=== PATIENT | male | born 1955 | race Caucasian/White ===

== ENCOUNTER 2023-11-22 12:52 | Inpatient (IN) ==
[2023-11-22 13:41] LABS: Hematocrit (blood only) 28.6 % (42.0-52.0); Hemoglobin 9.1 g/dl (14.0-18.0); Mean Corpuscular Hemoglobin 26.9 pg (25.0-34.0); Mean Corpuscular Hgb Conc 31.8 g/dL (32.0-36.0); Mean Corpuscular Volume 84.6 fL (80.0-100.0); Mean Platelet Volume 9.5 fL (9.4-12.4); Platelet Count 258 K/uL (130-400); RDW Standard Deviation 48.9 fL (36.4-46.3); Red Blood Count 3.38 M/uL (4.70-6.10); White Blood Count 31.39 K/ul (4.8-10.8)
--- NOTE | 2023-11-22 13:49 | Emergency Department Note ---
Impression & Plan Hypotension, Generalized weakness, Hypoxia, BAMBI (acute kidney injury) ED Provider Note ED Provider Note NAME: NAV ZAPATA AGE:68 SEX: Male : 1955 ARRIVES VIA: EMS INFORMANT: Patient, family ED PROVIDER(s): Milagros Chowdhury DO CHIEF COMPLAINT: Weakness, dizziness HPI: This is a 68-year-old male presents emergency department due to concern for increasing weakness, dizziness, decreased oral intake. Patient recently diagnosed with lung cancer. They state he is slowly been losing his appetite and has had decreased oral intake and has had subsequently increased weakness and dizziness particular with position change. They state he has been more tired and sleeping. He denies abdominal pain, vomiting or diarrhea. He does admit to occasional shortness of breath but states he does not wear home oxygen or use only nebs/MDIs at home. Family bedside also states he recently had a bladder infusion of chemotherapy for bladder cancer. Patient reports subjective fevers and chills however family states they have checked his temperature at home during these episodes and he has not had a measurable fever. They state he did get so weak this morning he dropped to his knees, no head injury, family states small abrasion to the left forearm. They state patient is scheduled to start chemotherapy next week for the lung cancer. Patient given 500 mL of normal saline by EMS prior to arrival. PAST MEDICAL HISTORY:See Below PAST SURGICAL HISTORY:See Below FAMILY HISTORY:See Below SOCIAL HISTORY:See Below HOME MEDICATIONS:See Below ALLERGIES:See Below VITALS:See Below PHYSICAL EXAMINATION: GENERAL: alert, ill appearing, well nourished, no distress, non-toxic EYE EXAM: normal conjunctiva, PERRL and EOM's grossly intact OROPHARYNX: no exudate, no erythema, lips, buccal mucosa, and tongue normal and mucous membranes are severely dry NECK: supple, no nuchal rigidity, no adenopathy, non-tender LUNGS: Clear to auscultation. Normal chest wall mechanics, no w/r, bibasilar rales, mild tachypnea HEART: no murmurs, S1 normal and S2 normal ABDOMEN: abdomen soft, non-tender, normo-active bowel sounds, no masses, no rebound or guarding. SKIN: no rashes, petechiae, orbruising UPPER EXTREMITIES: upper extremities are grossly normal. FROM, nml pulses b/l. LOWER EXTREMITIES: 1+ b/l L>R pitting edema. FROM, nml pulses b/l. NEURO EXAM: Normal sensorium, cranial nerves II-XII grossly intact, normal speech, no facial droop,nogross weakness of arms, no gross weakness of legs. Gross sensation intact. No ataxia. Vital Signs: reviewed and remarkable Differential Diagnosis: dehydration, stroke, anemia, hypoglycemia, hyponatremia, hypernatremia, urinary tract infection, pneumonia, bronchitis, sepsis, gastroenteritis, additional abdominal pathology, metabolic abnormalities, as well as others were considered MEDICAL DECISION MAKING: THis is a 68 yo male brought in by EMS due to family concern for worsening weakness, decreased oral intake, and hypotension noted by EMS and persistent on arrival here. He was also noted to be hypoxic on arrival. He was given 500 ml IVF by EMS. Labs drawn and sent, IV established, EKG and CXR performed and interpreted at bedside, and patient placed on telemetry. He was immediately started on additional IVF with slow improvement of his BP. He oxygen improved with NC supplementation. Leukocytosis noted and blood culture, lactic acid, and procal added and empiric antibiotics added additionally. Patient noted to have BAMBI also. We discussed additional imaging such as with CT however I did not feel patient was stable enough yet for that trip out of the department. Patient and family updated on results and need for additional inpatient mgmt. Case discussed with the hospitalist team for additional evaluation and mgmt. Blood pressure improved at time of conversation with hospitalist after 2.5 L IVF which dose meet sepsis guidelines for IVF resuscitation using IBW. Consultation(s): 1500: Discussed with Dr. Huynh, ID hospitalist team for additional evaluation and mgmt. ER Treatment Provided: See below Diagnostics Interpreted By Me: -ECG: nsr at 95, nml axis, nml intervals, no acute ST/T wave changes -Cardiac Monitoring: An order was placed for continuous cardiac monitoring. The monitor shows a rate of 80 with normal sinus rhythm. -Laboratory studies: As stated above and show below. -Imaging studies: cxr: pulm edema new compared to prior, lung mass, no cm, no wide mediastinum Triage Nursing Note Reviewed Prior/Outside Records Reviewed Critical Care: Critical care of 47 min performed to assess and manage high likelihood of life- threatening hypotension and bambi, involving labs and imaging performed with assessment to evaluate hypotension and weakness diagnosis with frequent reassessment. This time includes bedside time, treatment discussions with patient/family/consultants, documentation time and excludes procedure time. Past Med/Surg History Problem List (Updated 11/22/23 @ 23:46 by Rodriguez Huynh MD) Normocytic anemia Elevated INR Acute respiratory failure with hypoxia SIRS (systemic inflammatory response syndrome) BAMBI (acute kidney injury) (Acute) Hypoxia (Acute) Generalized weakness (Acute) Hypotension (Acute) Squamous cell lung cancer Lung nodule Combined pulmonary fibrosis and emphysema (CPFE) Hypersomnia Pulmonary fibrosis ILD (interstitial lung disease) Abnormal chest CT CIS (carcinoma in situ of bladder) Bladder mass Abnormal finding on CT scan Hematuria Proteinuria Vitamin D deficiency Chronic kidney disease, stage 3a follows w/ Dr. Ma Erectile dysfunction Chronic kidney disease, stage 3 Anemia Edema Hyperlipidemia (Acute) Medical History Obesity Prediabetes Hx of bladder cancer dx 2022, sx only Chronic kidney disease, stage 3a follows w/ Dr. Ma History of anemia Combined pulmonary fibrosis and emphysema (CPFE) f/u dr. pope, [place] pulm Lung nodule Hyperlipidemia Hypertension Surgical History History of lung biopsy History of transurethral resection of bladder tumor (TURBT) History of esophagogastroduodenoscopy (EGD) History of colonoscopy History of cornea transplant bilat Family History Father Myocardial infarction Family history of coronary artery disease Mother Non-Hodgkin's lymphoma Other No family history of adverse response to anesthesia Prostate cancer Denies family history of Ovarian cancer Breast cancer Colorectal cancer Social History Smoking Status: Former smoker Tobacco Type: Cigarettes Age Started Using Tobacco: 18; Age Quit Using Tobacco: 38; packs per day: 1; Second Hand Exposure: Yes (hx growing up); Do You Dip or Chew Tobacco: No (quit 20 years ago; advised); Hx Alcohol Use: Yes Alcohol type: beer, wine and hard liquor Hx Substance Use: No Preferred Language: Croatian Communication Ability: Effective Visual Impairment: No Limitations Hearing Ability: Normal Registered Radiographer Required: No Beliefs That Will Affect Care: None marital status: Current Living Situation: Spouse current occupational status: employed current occupation: Part-time employed-[employer] Other Information That Helps Us Care for You: No Feels Safe at Home: Yes Safety Concerns: Feels Safe At This Time Childhood Exposure to Second-Hand Smoke: Yes Dental Care, Regularly: No Physical Activity Frequency: Does not Exercise Seatbelt Use: always Sunscreen Use: No Assistive Devices: None Allergies Allergies Allergy/AdvReac Type Severity Reaction Status Date / Time No Known Drug Allergies Allergy Unknown Unknown Verified 11/22/23 15:24 Home Meds Home Medications Medication Instructions Recorded Confirmed aspirin 81 mg tablet,delayed 81 mg PO QAM 12/22/17 11/22/23 release (Alexander Low Dose Aspirin) multivitamin 1 tab PO QAM 12/22/17 11/22/23 omega 5-pxj-guj-fish oil 1,000 mg 1 cap PO QAM 12/22/17 11/22/23 (120 mg-180 mg) capsule (Fish Oil) empagliflozin 10 mg tablet 10 mg PO QAM 09/16/23 11/22/23 (Jardiance) ibuprofen 400 mg tablet 400 mg PO Q6H PRN Pain 09/24/23 11/22/23 oxybutynin chloride 5 mg tablet 5 mg PO Q8H PRN bladder spasms 10/14/23 11/22/23 dexamethasone 4 mg tablet See Rx Instructions .Route .COMPLEX 11/22/23 11/22/23 magnesium oxide 250 mg PO DAILY 11/22/23 11/22/23 olanzapine 2.5 mg tablet 2.5 mg PO UD 11/22/23 11/22/23 ondansetron 8 mg disintegrating 8 mg translingual Q8 PRN Nausea 11/22/23 11/22/23 tablet And Vomiting oxycodone 5 mg tablet 5 mg PO .EVERY 4-6 HOURS PRN Pain 11/22/23 11/22/23 potassium 99 mg tablet 99 mg PO DAILY 11/22/23 11/22/23 prochlorperazine maleate 10 mg 10 mg PO Q6 PRN Nausea 11/22/23 11/22/23 tablet Previous Rx's Medication Instructions Recorded rosuvastatin 10 mg tablet 10 mg PO QAM #90 tabs 06/26/23 Results & Data (ED) Vital Signs Vital Signs - 24 hr 11/22/23 12:46 11/22/23 13:03 11/22/23 13:19 Temperature 36.5 C Temperature Source Oral Pulse Rate 88 Pulse Rate [Apical] Pulse Rhythm Regular Pulse Strength Normal Respiratory Rate 24 22 Respiratory Effort / Characteristics Non-Labored Respiratory Depth Normal Respiratory Pattern Regular Blood Pressure 79/41 L Blood Pressure [Right Arm] Blood Pressure Mean 53 Blood Pressure Mean [Right Arm] Blood Pressure Position [Right Arm] Pulse Oximetry 88 L 88 L 97 Oxygen Delivery Method Room Air Nasal Cannula Room Air Nasal Cannula Oxygen Flow Rate 0 2 Sepsis Recent Fever Within 48 Hours No Sepsis New/Unexplained Change in Mental Status No Sepsis Action Taken by Nursing No Action Required Oxygen Flow Rate - Titration 2 Pulse Oximetry Post Tiitration 95 11/22/23 13:30 11/22/23 13:30 11/22/23 13:44 Temperature Temperature Source Pulse Rate 85 88 Pulse Rate [Apical] 84 Pulse Rhythm Pulse Strength Respiratory Rate 26 H 28 H Respiratory Effort / Characteristics Respiratory Depth Respiratory Pattern Blood Pressure 72/45 L Blood Pressure [Right Arm] 79/48 L Blood Pressure Mean 54 Blood Pressure Mean [Right Arm] 58 Blood Pressure Position [Right Arm] Lying Pulse Oximetry 97 99 Oxygen Delivery Method Nasal Cannula Nasal Cannula Oxygen Flow Rate 2 2 Sepsis Recent Fever Within 48 Hours Sepsis New/Unexplained Change in Mental Status Sepsis Action Taken by Nursing Oxygen Flow Rate - Titration Pulse Oximetry Post Tiitration 11/22/23 14:10 11/22/23 14:17 11/22/23 15:03 Temperature Temperature Source Pulse Rate Pulse Rate [Apical] 81 80 79 Pulse Rhythm Pulse Strength Respiratory Rate 26 H 24 26 H Respiratory Effort / Characteristics Respiratory Depth Respiratory Pattern Blood Pressure Blood Pressure [Right Arm] 93/51 L 100/58 L 100/55 L Blood Pressure Mean Blood Pressure Mean [Right Arm] 65 72 70 Blood Pressure Position [Right Arm] Pulse Oximetry 96 99 97 Oxygen Delivery Method Nasal Cannula Nasal Cannula Nasal Cannula Oxygen Flow Rate 2 2 2 Sepsis Recent Fever Within 48 Hours Sepsis New/Unexplained Change in Mental Status Sepsis Action Taken by Nursing Oxygen Flow Rate - Titration Pulse Oximetry Post Tiitration Laboratory Data 11/24/23 05:23 11/24/23 05:23 Lab Results 11/22/23 11/22/23 11/22/23 Range/Units 13:08 13:38 13:54 WBC 31.39 H* (4.8-10.8) K/ul RBC 3.38 L (4.70-6.10) M/uL Hgb 9.1 L (14.0-18.0) g/dl Hct 28.6 L (42.0-52.0) % MCV 84.6 (80.0-100.0) fL MCH 26.9 (25.0-34.0) pg MCHC 31.8 L (32.0-36.0) g/dL RDW Std Deviation 48.9 H (36.4-46.3) fL RDW Coeff of Isac 16.0 H (11.5-14.5) % Plt Count 258 (130-400) K/uL MPV 9.5 (9.4-12.4) fL Immature Gran % (Auto) 3.7 % Neut % (Auto) 87.3 % Lymph % (Auto) 3.7 % [place] % (Auto) 4.7 % Eos % (Auto) 0.3 % Baso % (Auto) 0.3 % Neut # (Auto) 27.43 H (1.40-6.50) K/uL Lymph # (Auto) 1.16 L (1.20-3.40) K/uL [place] # (Auto) 1.46 H (0.11-0.59) K/uL Eos # (Auto) 0.08 (0.00-0.50) K/uL Baso # (Auto) 0.10 (0.00-0.20) K/uL Immature Gran # (Auto) 1.16 H (0.01-0.20) K/uL Polychromasia 1+ Echinocytes 1+ PT 14.8 H (9.0-12.0) Seconds INR 1.4 H (0.9-1.1) APTT 29 (21-31) Seconds PTT Ratio 1.1 Sodium 139 (136-145) mmol/L Potassium 4.5 (3.5-5.1) mmol/L Chloride 108 H (98-107) mmol/L Carbon Dioxide 18 L (21-32) mmol/L Anion Gap 13 H (3-11) BUN 68 H (6-23) mg/dl Creatinine 2.33 H (0.6-1.4) mg/dl Est Cr Clr Drug Dosing 33.5 ml/min Est GFR ( Amer) 31.6 ml/min Est GFR (Non-Af Amer) 27.3 ml/min BUN/Creatinine Ratio 29.2 H (10-20) Glucose 136 H (70-99(Fasting)) mg/dl Lactate 1.7 (0.4-2.0) mmol/L Calcium 9.9 (8.6-10.3) mg/dl Magnesium 2.2 (1.7-2.4) mg/dl Total Bilirubin 0.9 (0.2-1.0) mg/dl AST 52 H (13-39) U/L ALT 56 H (7-52) U/L Alkaline Phosphatase 335 H (34-104) U/L Troponin I High Sens 46.6 H (0-20) pg/ml B-Natriuretic Peptide 173 H (0-100) pg/ml Total Protein 6.2 (6.0-8.3) gm/dl Albumin 2.7 L (3.4-5.0) gm/dl Globulin 3.5 (2.5-4.0) gm/dl Albumin/Globulin Ratio 0.8 L (0.9-2) Procalcitonin 3.75 H (0-0.5) ng/ml TSH 9.170 H (0.300-4.500) uIu/ml Free T4 1.10 (0.61-1.60) ng/dl Random Cortisol 32.64 mcg/dl Adenovirus (PCR) Not Detected (NotDetected) B. pertussis DNA (PCR) Not Detected (NotDetected) B.parapertussis DNA PCR Not Detected (NotDetected) C. pneumoniae DNA (PCR) Not Detected (NotDetected) Coronavirus OC43 (PCR) Not Detected (NotDetected) Coronavirus HKU1 (PCR) Not Detected (NotDetected) Coronavirus 229E (PCR) Not Detected (NotDetected) SARS-CoV-2 (PCR) Not Detected (NotDetected) Coronavirus NL63 (PCR) Not Detected (NotDetected) Human Metapneumovir PCR Not Detected (NotDetected) Influenza Type A (PCR) Not Detected (NotDetected) Influenza Type B (PCR) Not Detected (NotDetected) M. pneumoniae (PCR) Not Detected (NotDetected) Parainfluenza 1 (PCR) Not Detected (NotDetected) Parainfluenza 2 (PCR) Not Detected (NotDetected) Parainfluenza 3 (PCR) Not Detected (NotDetected) Parainfluenza 4 (PCR) Not Detected (NotDetected) RSV (PCR) Not Detected (NotDetected) Entero/Rhino (PCR) Not Detected (NotDetected) Administered Medications Acetaminophen (Acetaminophen 325 Mg Tab) 650 mg PO Q4H PRN PRN Reason: Pain or Fever Stop: 12/22/23 17:47 Last Admin: 11/23/23 23:50 Dose: 650 mg Documented By: Admin: 11/23/23 03:03 Dose: 650 mg Documented By: [facility] Heparin Sodium (Porcine) (Heparin Sod 5,000 Unit/0.5 Ml Vial) 5,000 units SQ Q8 JAYSON Stop: 12/22/23 21:59 Last Admin: 11/24/23 05:23 Dose: 5,000 units Documented By: [facility] Admin: 11/23/23 21:15 Dose: 5,000 units Documented By: [facility] Admin: 11/23/23 13:25 Dose: 5,000 units Documented By: CARLOS EDUARDO Admin: 11/23/23 06:11 Dose: 5,000 units Documented By: [facility] Admin: 11/22/23 23:00 Dose: 5,000 units Documented By: [facility] Piperacillin Sod/Tazobactam Sod (Zosyn) 4.5 gm in 100 mls @ 25 mls/hr IV Q8H JAYSON Stop: 11/25/23 00:59 Last Admin: 11/24/23 08:16 Dose: 25 mls/hr Documented By: Infusion: 11/24/23 03:50 Dose: Infused Documented By: Admin: 11/23/23 23:50 Dose: 25 mls/hr Documented By: Infusion: 11/23/23 20:37 Dose: Infused Documented By: Admin: 11/23/23 16:29 Dose: 25 mls/hr Documented By: CARLOS EDUARDO Infusion: 11/23/23 11:52 Dose: Infused Documented By: CARLOS EDUARDO Admin: 11/23/23 08:55 Dose: 25 mls/hr Documented By: CARLOS EDUARDO Infusion: 11/23/23 05:15 Dose: Infused Documented By: Admin: 11/23/23 01:32 Dose: 25 mls/hr Documented By: DU Multivitamins (Multivitamin Tab) 1 tab PO QAM JAYSON Stop: 12/23/23 08:59 Last Admin: 11/24/23 08:17 Dose: 1 tab Documented By: Admin: 11/23/23 08:55 Dose: 1 tab Documented By: CARLOS EDUARDO Oxycodone HCl (Oxycodone Hcl Ir 5 Mg Tab (Immediate Release)) 5 mg PO Q4H PRN PRN Reason: Pain Stop: 12/06/23 17:47 Last Admin: 11/24/23 09:41 Dose: 5 mg Documented By: Admin: 11/23/23 18:46 Dose: 5 mg Documented By: CARLOS EDUARDO Admin: 11/23/23 04:22 Dose: 5 mg Documented By: DU Discontinued Medications Fentanyl Citrate (Fentanyl Citrate Pf 100 Mcg/2 Ml Vial) 50 mcg IV Q15M PRN PRN Reason: Pain Stop: 12/06/23 13:42 Last Admin: 11/22/23 14:01 Dose: 50 mcg Documented By: KARY Sodium Chloride (Nss) 1,000 mls @ 999 mls/hr IV .Q1H1M ONE Stop: 11/22/23 14:43 Last Infusion: 11/22/23 15:03 Dose: Infused Documented By: Admin: 11/22/23 14:01 Dose: 999 mls/hr Documented By: KARY Famotidine (Pepcid 20mg Iv Push) 20 mg in 5 mls @ 2.5 mls/min IV NOW STA Stop: 11/22/23 13:44 Last Admin: 11/22/23 14:01 Dose: 2.5 mls/min Documented By: KARY Acetaminophen (Ofirmev) 1,000 mg in 100 mls @ 400 mls/hr IV NOW STA Stop: 11/22/23 13:57 Last Infusion: 11/22/23 14:18 Dose: Infused Documented By: Admin: 11/22/23 14:01 Dose: 400 mls/hr Documented By: KARY Cefepime HCl (Maxipime) 2,000 mg in 20 mls @ 5 mls/min IV NOW STA; Protocol Stop: 11/22/23 13:48 Last Admin: 11/22/23 14:01 Dose: 5 mls/min Documented By: KARY Sodium Chloride (Nss) 1,000 mls @ 999 mls/hr IV .Q1H1M ONE Stop: 11/22/23 15:11 Last Infusion: 11/22/23 15:03 Dose: Infused Documented By: Admin: 11/22/23 14:18 Dose: 999 mls/hr Documented By: MMDarrell Lactated Ringer's (Lr) 1,000 mls @ 250 mls/hr IV .Q4H JAYSON Stop: 12/22/23 15:14 Last Admin: 11/22/23 15:51 Dose: Not Given Documented By: TIA Lactated Ringer's (Lr) 1,000 mls @ 999 mls/hr IV .Q1H1M ONE Stop: 11/22/23 16:25 Last Infusion: 11/22/23 19:05 Dose: Infused Documented By: Admin: 11/22/23 15:44 Dose: 999 mls/hr Documented By: TIA Phytonadione 10 mg/ Dextrose 51 mls @ 102 mls/hr IV ONE ONE Stop: 11/22/23 16:59 Last Infusion: 11/22/23 19:04 Dose: Infused Documented By: Admin: 11/22/23 16:48 Dose: 102 mls/hr Documented By: TIA Piperacillin Sod/Tazobactam Sod (Zosyn) 4.5 gm in 100 mls @ 200 mls/hr IV ONE ONE; Protocol Stop: 11/22/23 20:14 Last Infusion: 11/22/23 20:14 Dose: Infused Documented By: Admin: 11/22/23 19:55 Dose: 200 mls/hr Documented By: [facility] Albumin Human (Albumin 25%) 25 gm in 100 mls @ 50 mls/hr IV ONE ONE Stop: 11/22/23 21:34 Last Infusion: 11/22/23 21:12 Dose: Infused Documented By: Admin: 11/22/23 19:55 Dose: 50 mls/hr Documented By: ABDOUL Lactated Ringer's (Lr) 1,000 mls @ 125 mls/hr IV .Q8H JAYSON Stop: 11/23/23 11:59 Last Infusion: 11/23/23 11:52 Dose: Infused Documented By: CARLOS EDUARDO Admin: 11/23/23 04:19 Dose: 125 mls/hr Documented By: Infusion: 11/23/23 03:56 Dose: Infused Documented By: [facility] Admin: 11/22/23 19:56 Dose: 125 mls/hr Documented By: ABDOUL Albumin Human (Albumin 25%) 25 gm in 100 mls @ 50 mls/hr IV ONE ONE Stop: 11/22/23 22:39 Last Infusion: 11/22/23 23:22 Dose: Infused Documented By: Admin: 11/22/23 21:12 Dose: 50 mls/hr Documented By: ABDOUL Ioversol (Optiray 320 125ml) 120 ml IV ONCE ONE Stop: 11/22/23 23:49 Last Admin: 11/22/23 23:49 Dose: 120 ml Documented By: FREDERICK Imaging Data Radiologist's Impression: Chest X-Ray 11/22/23 13:17 XR chest 1V portable HISTORY: 68 years-old Male weakness acute weakness COMPARISON: PET CT 11/11/2023 TECHNIQUE: AP view of the chest FINDINGS: Cardiac silhouette is enlarged. Pulmonary vascular congestion with interstitial coarsening. Atherosclerosis of the aorta. No pneumothorax. Small pleural effusions with bibasilar predominant opacities. Emphysema. Mediastinal and hilar lymphadenopathy redemonstrated. Right basilar necrotic lesion is demonstrated. IMPRESSION: 1. Cardiomegaly with pulmonary vascular congestion and probable pulmonary edema. 2. Small pleural effusions. 3. Chronic interstitial lung disease. 4. Right basilar necrotic lesion better seen on the prior PET/CT. 5. Mediastinal lymphadenopathy again seen. ACT 112: Negative or not required by law. The above report was generated using voice recognition software. It may contain grammatical, syntax or spelling errors. Electronically signed by: Madi Colbert M.D. 11/22/2023 2:17 PM Discharge Plan Visit Data Chief Complaint: Weakness Stated Complaint: WEAKNESS ED Provider: Milagros Chowdhury Discharge Problem: Hypotension, Generalized weakness, Hypoxia, BAMBI (acute kidney injury) Patient Disposition: Admitted As Inpatient Discharge Instructions Interventions: ED Discharge Assessment Last Done: 11/22/23 17:45
[2023-11-22 13:50] LABS: Albumin Globulin Ratio 0.8 (0.9-2); Albumin Level 2.7 gm/dl (3.4-5.0); BUN Creatinine Ratio 29.2 (10-20); Bilirubin,Total 0.9 mg/dl (0.2-1.0); Calcium 9.9 mg/dl (8.6-10.3); Creatinine Clr Calc Pharmacy 33.5 ml/min; Est GFR (African American) 31.6 ml/min; Est GFR (Non-African American) 27.3 ml/min; Globulin 3.5 gm/dl (2.5-4.0); Potassium 4.5 mmol/L (3.5-5.1); Total Protein 6.2 gm/dl (6.0-8.3)
[2023-11-22 13:51] LABS: Basophils % (auto) 0.3 %; Echinocytes 1+; Eosinophils # (auto) 0.08 K/uL (0.00-0.50); Eosinophils % (auto) 0.3 %; Immature Granulocytes # (auto) 1.16 K/uL (0.01-0.20); Immature Granulocytes % (auto) 3.7 %; Lymphocytes # (auto) 1.16 K/uL (1.20-3.40); Lymphocytes % (auto) 3.7 %; Monocytes # (auto) 1.46 K/uL (0.11-0.59); Monocytes % (auto) 4.7 %; Neutrophils # (auto) 27.43 K/uL (1.40-6.50); Neutrophils % (auto) 87.3 %; Polychromasia 1+
[2023-11-22] MEDS: fentaNYL citrate PF 100 MCG/2 ML VIAL IV PRN (14:01)
[2023-11-22] MEDS: ACETAMINOPHEN 1,000 MG/100 ML VIAL IV STA (14:01)
[2023-11-22] MEDS: CEFEPIME 2,000 MG/20 ML VIAL IV STA (14:01)
[2023-11-22] MEDS: FAMOTIDINE 20MG IV PUSH 20 MG/5 ML SYR IV STA (14:01)
[2023-11-22] MEDS: SODIUM CHLORIDE 0.9% 1,000 ML IV ONE ×2 (14:01→14:18)
[2023-11-22 14:04] LABS: Magnesium 2.2 mg/dl (1.7-2.4); Thyroid Stimulating Hormone 9.17 uIu/ml (0.300-4.500)
[2023-11-22 14:12] LABS: Troponin I High Sensitivity 46.6 pg/ml (0-20)
--- NOTE | 2023-11-22 14:19 | XRay Report ---
XR chest 1V portable HISTORY: 68 years-old Male weakness acute weakness COMPARISON: PET CT 11/11/2023 TECHNIQUE: AP view of the chest FINDINGS: Cardiac silhouette is enlarged. Pulmonary vascular congestion with interstitial coarsening. Atheroscl erosis of the aorta. No pneumothorax. Small pleural effusions with bibasilar predominant opacities. E mphysema. Mediastinal and hilar lymphadenopathy redemonstrated. Right basilar necrotic lesion is demo nstrated. IMPRESSION: 1. Cardiomegaly with pulmonary vascular congestion and probable pulmonary edema. 2. Small pleural effusions. 3. Chronic interstitial lung disease. 4. Right basilar necrotic lesion better seen on the prior PET/CT. 5. Mediastinal lymphadenopathy again seen. ACT 112: Negative or not required by law. The above report was generated using voice recognition software. It may contain grammatical, syntax o r spelling errors. Electronically signed by: Madi Colbert M.D. 11/22/2023 2:17 PM
[2023-11-22 14:32] LABS: Adenovirus PCR Not Detected (NotDetected); Bordetella parapertussis PCR Not Detected (NotDetected); Bordetella pertussis PCR Not Detected (NotDetected); Chlamydia pneumoniae PCR Not Detected (NotDetected); Coronavirus 229E PCR Not Detected (NotDetected); Coronavirus CoV-2 (COVID19)PCR Not Detected (NotDetected); Coronavirus HKU1 PCR Not Detected (NotDetected); Coronavirus NL63 PCR Not Detected (NotDetected); Coronavirus OC43PCR Not Detected (NotDetected); Human Metapneumovirus PCR Not Detected (NotDetected); Influenza A PCR Not Detected (NotDetected); Influenza B PCR Not Detected (NotDetected); Mycoplasma pneumoniae PCR Not Detected (NotDetected); Parainfluenza Virus 1 PCR Not Detected (NotDetected); Parainfluenza Virus 2 PCR Not Detected (NotDetected); Parainfluenza Virus 3 PCR Not Detected (NotDetected); Parainfluenza Virus 4 PCR Not Detected (NotDetected); Respiratory Syncytial VirusPCR Not Detected (NotDetected); Rhinovirus/Enterovirus PCR Not Detected (NotDetected)
[2023-11-22 14:39] LABS: T4 Free Thyroxine 1.1 ng/dl (0.61-1.60)
--- NOTE | 2023-11-22 15:11 | History & Physical Report ---
Date of Service November 22, 2023 Assessment & Plan (1) SIRS (systemic inflammatory response syndrome): Plan: Suspect his WBC and procalcitonin due to extensive metastatic cancer although cannot rule out bacteremia at this time. No definitive source of infection to diagnose sepsis - consider CT C/A/P with IV contrast once renal function improved if bacteremic Empiric cefepime given int he ER with continue IV Zosyn (2) Acute respiratory failure with hypoxia: Plan: Suspect due to underlying cancer with pulmonary fibrosis and emphysema - likely to need oxygen lifelong Consider CT for PE if significant worsening (3) Hypotension: Plan: TTE to assess for pericardial effusion Cortisol normal No longer on anti-hypertensives Surprisingly lactate normal with BP as low as 72/45 on arrival to ER although he was symptomatically lightheaded at that time Total 3L bolus IV fluids Patient would be amenable to vasopressors overnight if recommended (4) BAMBI (acute kidney injury): Plan: Cr 2.33 from 1.46 Very dry on exam with mild third spacing (suspect nutritional) Expect to resolve with IV fluids resuscitation (5) Elevated INR: Plan: Suspect more nutritional than hepatic dysfunction given normal platelets Vitamin K 10mg IV and repeat INR with AM labs (6) Normocytic anemia: Plan: Suspect from metastatic bone involvement Ferritin, iron studies, retic count, B12, folate, LDH with AM labs (7) Squamous cell lung cancer: Plan: With extensive metastatic disease. Planned on starting chemotherapy on Friday but given his overall nutritional state and already inability to not keep up with oral/nutritional intake will consult oncology and palliative care to discuss this further. 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 He reports ongoing generalized weakness getting progressively worse but significant over the last 2 days with him not being able to get around his house. No one-sided weakness, change in speech/hearing/vision. This weakness is associated with progressive shortness of breath especially on exertion and decreased appetite. He denies any fever, chills, nasal congestion, sinus pain, productive cough. No abdominal pain, nausea, vomiting, diarrhea. No urinary symptoms. He reports intermittent pains in his bilateral flanks, back, down his left side, and right shoulder which come and go. He reports chemotherapy is planned to start on Friday. Allergies Allergy/AdvReac Type Severity Reaction Status Date / Time No Known Drug Allergies Allergy Unknown Unknown Verified 11/22/23 15:24 Home Medications Medication Instructions Recorded Confirmed Type aspirin 81 mg tablet,delayed 81 mg PO QAM 12/22/17 11/22/23 History release (Alexander Low Dose Aspirin) multivitamin 1 tab PO QAM 12/22/17 11/22/23 History omega 3-uvp-twk-fish oil 1,000 mg 1 cap PO QAM 12/22/17 11/22/23 History (120 mg-180 mg) capsule (Fish Oil) rosuvastatin 10 mg tablet 10 mg PO QAM #90 tabs 06/26/23 11/22/23 Rx empagliflozin 10 mg tablet 10 mg PO QAM 09/16/23 11/22/23 History (Jardiance) ibuprofen 400 mg tablet 400 mg PO Q6H PRN Pain 09/24/23 11/22/23 History oxybutynin chloride 5 mg tablet 5 mg PO Q8H PRN bladder spasms 10/14/23 11/22/23 History dexamethasone 4 mg tablet See Rx Instructions .Route .COMPLEX 11/22/23 11/22/23 History magnesium oxide 250 mg PO DAILY 11/22/23 11/22/23 History olanzapine 2.5 mg tablet 2.5 mg PO UD 11/22/23 11/22/23 History ondansetron 8 mg disintegrating 8 mg translingual Q8 PRN Nausea 11/22/23 11/22/23 History tablet And Vomiting oxycodone 5 mg tablet 5 mg PO .EVERY 4-6 HOURS PRN Pain 11/22/23 11/22/23 History potassium 99 mg tablet 99 mg PO DAILY 11/22/23 11/22/23 History prochlorperazine maleate 10 mg 10 mg PO Q6 PRN Nausea 11/22/23 11/22/23 History tablet Past Med/Surg History Problem List (Updated 11/22/23 @ 23:46 by Rodriguez Huynh MD) Normocytic anemia Elevated INR Acute respiratory failure with hypoxia SIRS (systemic inflammatory response syndrome) BAMBI (acute kidney injury) (Acute) Hypoxia (Acute) Generalized weakness (Acute) Hypotension (Acute) Squamous cell lung cancer Lung nodule Combined pulmonary fibrosis and emphysema (CPFE) Hypersomnia Pulmonary fibrosis ILD (interstitial lung disease) Abnormal chest CT CIS (carcinoma in situ of bladder) Bladder mass Abnormal finding on CT scan Hematuria Proteinuria Vitamin D deficiency Chronic kidney disease, stage 3a follows w/ Dr. Ma Erectile dysfunction Chronic kidney disease, stage 3 Anemia Edema Hyperlipidemia (Acute) Medical History Obesity Prediabetes Hx of bladder cancer dx 2022, sx only Chronic kidney disease, stage 3a follows w/ Dr. Ma History of anemia Combined pulmonary fibrosis and emphysema (CPFE) f/u dr. pope, de pulm Lung nodule Hyperlipidemia Hypertension Surgical History History of lung biopsy History of transurethral resection of bladder tumor (TURBT) History of esophagogastroduodenoscopy (EGD) History of colonoscopy History of cornea transplant bilat Family History Father Myocardial infarction Family history of coronary artery disease Mother Non-Hodgkin's lymphoma Other No family history of adverse response to anesthesia Prostate cancer Denies family history of Ovarian cancer Breast cancer Colorectal cancer Social History Smoking Status: Former smoker Tobacco Type: Cigarettes Age Started Using Tobacco: 18; Age Quit Using Tobacco: 38; packs per day: 1; Second Hand Exposure: Yes (hx growing up); Do You Dip or Chew Tobacco: No (quit 20 years ago; advised); Hx Alcohol Use: Yes Alcohol type: beer, wine and hard liquor Hx Substance Use: No Preferred Language: Faroese Communication Ability: Effective Visual Impairment: No Limitations Hearing Ability: Normal Loan Secretary Required: No Beliefs That Will Affect Care: None marital status: Current Living Situation: Spouse current occupational status: employed current occupation: Part-time employed-[id number] Other Information That Helps Us Care for You: No Feels Safe at Home: Yes Safety Concerns: Feels Safe At This Time Childhood Exposure to Second-Hand Smoke: Yes Dental Care, Regularly: No Physical Activity Frequency: Does not Exercise Seatbelt Use: always Sunscreen Use: No Assistive Devices: None Review of Systems Review of Systems: All systems reviewed & are unremarkable except as noted in HPI & below Physical Exam Constitutional: well developed and well nourished; no acute distress Eyes: PERRL, conjunctivae normal, anicteric sclerae ENMT: Mouth: + dry oral mucous membranes (very) Respiratory: + uses accessory muscles and able to spe ak in complete sentences; no labored breathing and expiratory phase not prolonged Auscultation: lungs clear to auscultation bilaterally; breath sounds present, no diminished lung sounds, no crackles, no rhonchi and no wheezes Cardiovascular: Rate/Rhythm: regular rhythm and + tachycardic Heart Sounds: no murmur Extremities: normal capillary refill and + pedal edema (1+ b/l equal); no calf tenderness Gastrointestinal (Abdomen): normal bowel sounds, soft, nontender, no hepatosplenomegaly Musculoskeletal: no cyanosis or clubbing, extremities motor strength 5/5 Skin: no rashes, warm and dry (No areas of cellulitis noted) Neurologic: moves all extremities and awake; not confused Psychiatric: A+Ox3, euthymic affect Genitourinary: no CVA tenderness Results & Data Results & Data Vital Signs (Past 12 Hours) Vital Signs Temp Pulse Pulse Resp BP BP Pulse Ox 11/22/23 15:03 79 26 H 100/55 L 97 11/22/23 14:17 80 24 100/58 L 99 11/22/23 14:10 81 26 H 93/51 L 96 11/22/23 13:44 84 28 H 79/48 L 99 11/22/23 13:30 88 26 H 72/45 L 97 11/22/23 13:30 85 11/22/23 13:19 22 97 11/22/23 13:03 36.5 C 88 24 79/41 L 88 L 11/22/23 12:46 88 L O2 Del Method O2 Flow Rate 11/22/23 15:03 Nasal Cannula 2 11/22/23 14:17 Nasal Cannula 2 11/22/23 14:10 Nasal Cannula 2 11/22/23 13:44 Nasal Cannula 2 11/22/23 13:30 Nasal Cannula 2 11/22/23 13:30 11/22/23 13:19 Nasal Cannula 2 11/22/23 13:03 Room Air 11/22/23 12:46 Room Air, Nasal Cannula 0 Laboratory Results Abnormal lab results 11/22/23 11/22/23 11/22/23 Range/Units 13:08 13:54 20:00 WBC 31.39 H* (4.8-10.8) K/ul RBC 3.38 L (4.70-6.10) M/uL Hgb 9.1 L (14.0-18.0) g/dl Hct 28.6 L (42.0-52.0) % MCHC 31.8 L (32.0-36.0) g/dL RDW Std Deviation 48.9 H (36.4-46.3) fL RDW Coeff of Isac 16.0 H (11.5-14.5) % Neut # (Auto) 27.43 H (1.40-6.50) K/uL Lymph # (Auto) 1.16 L (1.20-3.40) K/uL [place] # (Auto) 1.46 H (0.11-0.59) K/uL Immature Gran # (Auto) 1.16 H (0.01-0.20) K/uL PT 14.8 H (9.0-12.0) Seconds INR 1.4 H (0.9-1.1) Chloride 108 H (98-107) mmol/L Carbon Dioxide 18 L (21-32) mmol/L Anion Gap 13 H (3-11) BUN 68 H (6-23) mg/dl Creatinine 2.33 H (0.6-1.4) mg/dl BUN/Creatinine Ratio 29.2 H (10-20) Glucose 136 H (70-99(Fasting)) mg/dl Lactate 2.3 H* (0.4-2.0) mmol/L AST 52 H (13-39) U/L ALT 56 H (7-52) U/L Alkaline Phosphatase 335 H (34-104) U/L Troponin I High Sens 46.6 H 27.7 H D (0-20) pg/ml B-Natriuretic Peptide 173 H (0-100) pg/ml Albumin 2.7 L (3.4-5.0) gm/dl Albumin/Globulin Ratio 0.8 L (0.9-2) Procalcitonin 3.75 H (0-0.5) ng/ml TSH 9.170 H (0.300-4.500) uIu/ml Urine Protein (Negative) Urine Glucose (UA) (Negative) Urine Blood (Negative) Urine RBC (Auto) (0-2) /hpf U Hyaline Cast (Auto) (0-2) /lpf 11/22/23 11/22/23 Range/Units 22:32 Unknown WBC 21.90 H (4.8-10.8) K/ul RBC 2.97 L (4.70-6.10) M/uL Hgb 8.1 L (14.0-18.0) g/dl Hct 25.3 L (42.0-52.0) % MCHC (32.0-36.0) g/dL RDW Std Deviation 49.1 H (36.4-46.3) fL RDW Coeff of Isac 15.9 H (11.5-14.5) % Neut # (Auto) (1.40-6.50) K/uL Lymph # (Auto) (1.20-3.40) K/uL [place] # (Auto) (0.11-0.59) K/uL Immature Gran # (Auto) (0.01-0.20) K/uL PT (9.0-12.0) Seconds INR (0.9-1.1) Chloride (98-107) mmol/L Carbon Dioxide 20 L (21-32) mmol/L Anion Gap (3-11) BUN 56 H (6-23) mg/dl Creatinine 1.80 H D (0.6-1.4) mg/dl BUN/Creatinine Ratio 31.1 H (10-20) Glucose 153 H (70-99(Fasting)) mg/dl Lactate 2.9 H* (0.4-2.0) mmol/L AST (13-39) U/L ALT (7-52) U/L Alkaline Phosphatase (34-104) U/L Troponin I High Sens (0-20) pg/ml B-Natriuretic Peptide (0-100) pg/ml Albumin (3.4-5.0) gm/dl Albumin/Globulin Ratio (0.9-2) Procalcitonin (0-0.5) ng/ml TSH (0.300-4.500) uIu/ml Urine Protein Trace H (Negative) Urine Glucose (UA) Trace H (Negative) Urine Blood 2+ H (Negative) Urine RBC (Auto) 6-10 H (0-2) /hpf U Hyaline Cast (Auto) 3-5 H (0-2) /lpf Diagnostic Findings XR chest 1V portable HISTORY: 68 years-old Male weakness acute weakness COMPARISON: PET CT 11/11/2023 TECHNIQUE: AP view of the chest FINDINGS: Cardiac silhouette is enlarged. Pulmonary vascular congestion with interstitial coarsening. Atherosclerosis of the aorta. No pneumothorax. Small pleural effusions with bibasilar predominant opacities. Emphysema. Mediastinal and hilar lymphadenopathy redemonstrated. Right basilar necrotic lesion is demonstrated. IMPRESSION: 1. Cardiomegaly with pulmonary vascular congestion and probable pulmonary edema. 2. Small pleural effusions. 3. Chronic interstitial lung disease. 4. Right basilar necrotic lesion better seen on the prior PET/CT. 5. Mediastinal lymphadenopathy again seen. Medications Administered ER medications given: Normal saline 1 L bolus Famotidine 20 mg IV Fentanyl 50 mcg IV Acetaminophen 1000 mg IV Cefepime 2000 mg IV Normal saline 1 L bolus LR @ 250ml/hr (discontinued) ECG Rate (beats per minute): 95 Rhythm: normal sinus Findings: no acute ischemic change Comparison ECG Date: from (February 25, 2023) Change: no significant change Code Status & VTE Plan Code Status DNR/DNI VTE Prophylaxis Plan VTE Prophylaxis will be ordered: Yes PG Care Time/CCT Total # of Minutes Spent Total Time Spent with Patient: Total time spent is greater than 50% in coordination of care (as documented) at patient's floor/unit and/or counseling patient: Coding Level of Care Code 23116 INT INP/OBS CARE 3/75MIN Diagnoses SIRS (systemic inflammatory response syndrome) R65.10 Acute respiratory failure with hypoxia J96.01 Hypotension I95.9 BAMBI (acute kidney injury) N17.9 Elevated INR R79.1 Normocytic anemia D64.9 Squamous cell lung cancer C34.90 Generalized weakness R53.1 Combined pulmonary fibrosis and emphysema (CPFE) J43.9; J84.10 CIS (carcinoma in situ of bladder) D09.0
[2023-11-22 15:21] LABS: Appearance Urine Clear (Clear); Bacteria Urine Automated None Seen (None Seen); Bilirubin Urine Negative (Negative); Blood Urine 2+ (Negative); Color Urine Yellow; Epithelial Cell Urine Auto 0-2 /hpf (0-2); Glucose Urine UA Trace (Negative); Ketones Urine Negative (Negative); Leukocyte Esterase Urine Negative (Negative); Nitrite Urine Negative (Negative); Protein Urine Trace (Negative); Specific Gravity Urine 1.013 (1.000-1.030); Urobilinogen Urine Negative (Negative); WBC Urine Automated 0-5 /hpf (0-5); pH Urine 5.5 (4.5-7.5)
[2023-11-22] MEDS: LACTATED RINGER'S 1,000 ML IV ONE (15:44)
[2023-11-22 15:47] LABS: INR 1.4 (0.9-1.1); Partial Thromboplastin Ratio 1.1; Partial Thromboplastin Time 29 Seconds (21-31); Prothrombin Time 14.8 Seconds (9.0-12.0)
[2023-11-22] MEDS: LACTATED RINGER'S 1,000 ML IV SCH ×2 (15:51→19:56)
[2023-11-22] MEDS: PHYTONADIONE 10 MG in DEXTROSE 5% 50 ML IV ONE (16:48)
[2023-11-22] MEDS ORDERED: oxyBUTYnin chloride 5 MG TAB PO PRN (17:48)
[2023-11-22] MEDS ORDERED: ONDANSETRON INJ 2 MG/ML 2 ML VIAL IV PRN (17:48)
[2023-11-22] MEDS: ALBUMIN 25% 25 GM/100 ML VIAL IV ONE ×2 (19:55→21:12)
[2023-11-22] MEDS: 4.5GM X1 IV ONE (19:55)
[2023-11-22 22:55] LABS: Hematocrit (blood only) 25.3 % (42.0-52.0); Hemoglobin 8.1 g/dl (14.0-18.0); Mean Corpuscular Hemoglobin 27.3 pg (25.0-34.0); Mean Corpuscular Volume 85.2 fL (80.0-100.0); Mean Platelet Volume 9.6 fL (9.4-12.4); Platelet Count 203 K/uL (130-400); RDW Coefficient of Variation 15.9 % (11.5-14.5); RDW Standard Deviation 49.1 fL (36.4-46.3); Red Blood Count 2.97 M/uL (4.70-6.10)
[2023-11-22] MEDS: HEPARIN SOD 5,000 UNIT/0.5 ML VIAL SQ SCH (23:00)
[2023-11-22 23:02] LABS: BUN Creatinine Ratio 31.1 (10-20); Calcium 9.2 mg/dl (8.6-10.3); Creatinine Clr Calc Pharmacy 45.5 ml/min; Est GFR (African American) 43.2 ml/min; Est GFR (Non-African American) 37.3 ml/min; Potassium 3.8 mmol/L (3.5-5.1)
[2023-11-22] MEDS: OPTIRAY 320 125ml IV ONE (23:49)
--- NOTE | 2023-11-22 23:56 | Billing Data ---
Date of Service November 22, 2023 Coding Level of Care Code 44955 CRITICAL CARE 1ST 30-74M Additional Critical Care Time Total Critical Care Time: 35
--- NOTE | 2023-11-22 23:56 | Communication Note ---
Date of Service: November 22, 2023 BP dropped again to 84/42 @ 20:20 with rising Lactate 1.7 -> 2.3. x2 25g 25% albumin ordered. Pt sitting in bed watching baseball without dizziness or l ightheadedness. Ordered repeat lactate, hemoglobin (due to anemia) and BMP ordered. Subsequent lactate 2.3 -> 2.9 however BP now improved. Anion gap closed and bicarb increased therefore this does not represent worsening acidosis and does not appear to be a perfusion issue. Possible from LR although heptic dysfunction does not appear than significant with normal Plt and INR increase more likely nu tritional - increasing lactate under this circumstance if not particularly concerning anyway. Pt remains asymptomatic but clinically appears more short of breath although he denies feeling this way. Since Cr now improved will get CT for PE and CT A/P with IV contrast to better assess for PE (hypoxia/tachycardia/hypotension) and potential source of infection potentially without current source control. Handed over patient to grain sacker to follow up on results.
--- NOTE | 2023-11-23 00:56 | CT Scan Report ---
Exam(s): CTA CHEST IV Amt: 120 ml EXAM: CT Angiography Chest With Intravenous Contrast CLINICAL HISTORY: Pulmonary embolus. TECHNIQUE: Axial computed tomographic angiography images of the chest with intravenous contrast. MIPS images were created and reviewed. CTDI is 28. 14 mGy and DLP is 803.27 mGy-cm. Automated exposure control was utilized for the study. A dose lowering technique was utilized adhering to the principles of ALARA. MIP reconstructed images were created and reviewed. COMPARISON: CT chest 09/15/2023. FINDINGS: Pulmonary arteries: Unremarkable. No pulmonary embolus. Aorta: No acute findings. No thoracic aortic aneurysm. Lungs: Interseptal thickening is concerning for pulmonary edema. 2.9 cm cavitary lesion of the right lower lobe is noted. Emphysema. Bronchiectasis. No mass. Pleural space: Unremarkable. No significant effusion. No pneumothorax. Heart: Unremarkable. No cardiomegaly. No significant pericardial effusion. No evidence of RV dysfunction. Coronary artery calcifications are present. Mediastinum: Unremarkable. Bones/joints: There is a 5.8 cm mass of the posterior left eighth rib. No acute fracture. No dislocation. Soft tissues: Soft tissue nodules of the subcutaneous fat of the lateral right chest wall and back measure up to 1.1 cm. Lymph nodes: Mediastinal lymphadenopathy measures up to 4.2 cm. IMPRESSION: 1. No pulmonary embolus. 2. Interseptal thickening is concerning for pulmonary edema. 3. Redemonstrated 2.9 cm cavitary lesion of the right lower lobe is noted. This could represent a cavitary pneumonia or cavitary malignancy. 4. New soft tissue nodules of the subcutaneous fat of the lateral right chest wall and back measure up to 1.1 cm. This likely metastatic. 5. Significantly worsened mediastinal lymphadenopathy measures up to 4.2 cm. This most likely represents metastatic disease. 6. New 5.8 cm mass of the posterior left eighth rib. This is most consistent with metastatic disease. 7. Emphysema with bronchiectasis. Underlying obstructive lung disease should be considered. Electronically signed by: Gerda Gonzalez MD 11/23/23 00:55 AM
--- NOTE | 2023-11-23 01:15 | CT Scan Report ---
Exam(s): CT ABDOMEN + PELVIS With Contrast IV Amt: 120 ml EXAM: CT Abdomen and Pelvis With Intravenous Contrast CLINICAL HISTORY: Metastatic lung cancer with sepsis. TECHNIQUE: Axial computed tomography images of the abdomen and pelvis with intravenous contrast. CTDI is 27.97 mGy and DLP is 1574.75 mGy-cm. Automated exposure control was utilized for the study. A dose lowering technique was utilized adhering to the principles of ALARA. CONTRAST: Patient received 120 ml of IV contrast COMPARISON: CT abdomen and pelvis 11/26/2022 FINDINGS: Lung bases: Unremarkable. No mass. No consolidation. ABDOMEN: Liver: Two new hepatic masses measure 2.3 cm and 4 cm. Gallbladder and bile ducts: Unremarkable. No calcified stones. No ductal dilation. Pancreas: Unremarkable. No ductal dilation. Normal pancreas. Spleen: Unremarkable. No splenomegaly. Adrenals: Unremarkable. No mass. Kidneys and ureters: Mild bilateral hydronephrosis. No nephrolithiasis. There is a simple appearing left renal cyst, no follow- up is needed. Stomach and bowel: Diverticulosis. No obstruction. No mucosal thickening. PELVIS: Appendix: No findings to suggest acute appendicitis. Bladder: Unremarkable. No mass. Reproductive: Unremarkable as visualized. ABDOMEN and PELVIS: Intraperitoneal space: Unremarkable. No free air. No significant fluid collection. Bones/joints: No acute fracture. No dislocation. Soft tissues: Nonspecific body wall edema worse on the right. A soft tissue nodule of the right flank measuring 1.8 cm is new most consistent with metastatic disease. Small bilateral fat-containing inguinal hernias. Vasculature: Severe atherosclerosis. No abdominal aortic aneurysm. Lymph nodes: Unremarkable. No enlarged lymph nodes. IMPRESSION: 1. Two new hepatic masses measure 2.3 cm and 4 cm. This most consistent with metastatic disease. 2. Mild bilateral hydronephrosis. No nephrolithiasis. 3. Nonspecific body wall edema worse on the right. 4. A soft tissue nodule of the right flank measuring 1.8 cm is new most consistent with metastatic disease. 5. Diverticulosis. Electronically signed by: Gerda Gonzalez MD 11/23/23 01:14 AM
[2023-11-23] MEDS: PIPERACILLIN/TAZOBACTAM 4.5 GM/100 ML BAG IV SCH (01:32)
[2023-11-23] MEDS: ACETAMINOPHEN 325 MG TAB PO PRN (03:03)
[2023-11-23] MEDS: oxyCODONE HCL IR 5 MG TAB (IMMEDIATE RELEASE) PO PRN (04:22)
[2023-11-23 07:02] LABS: Base Excess VBG -2.8 mEq/L; HCO3 VBG 20 mmol/L; Oxygen Saturation VBG 98.3 %; PCO2 VBG 27 mmHg (38-50); PO2 VBG 112 mmHg; pH VBG 7.48 (7.36-7.41)
[2023-11-23 07:17] LABS: Hematocrit (blood only) 24.9 % (42.0-52.0); Hemoglobin 7.8 g/dl (14.0-18.0); Mean Corpuscular Hemoglobin 26.6 pg (25.0-34.0); Mean Corpuscular Hgb Conc 31.3 g/dL (32.0-36.0); Mean Platelet Volume 9.4 fL (9.4-12.4); Platelet Count 210 K/uL (130-400); RDW Standard Deviation 48.9 fL (36.4-46.3); Red Blood Count 2.93 M/uL (4.70-6.10); Reticulocyte % 2.01 % (0.50-2.00); White Blood Count 28.55 K/ul (4.8-10.8)
[2023-11-23 07:34] LABS: Basophils # (auto) 0.07 K/uL (0.00-0.20); Basophils % (auto) 0.2 %; Eosinophils # (auto) 0.04 K/uL (0.00-0.50); Eosinophils % (auto) 0.1 %; Immature Granulocytes # (auto) 1.62 K/uL (0.01-0.20); Immature Granulocytes % (auto) 5.7 %; Lymphocytes # (auto) 1.15 K/uL (1.20-3.40); Monocytes # (auto) 1.33 K/uL (0.11-0.59); Monocytes % (auto) 4.7 %; Neutrophils # (auto) 24.34 K/uL (1.40-6.50); Neutrophils % (auto) 85.3 %; Polychromasia 1+
[2023-11-23 07:36] LABS: INR 1.4 (0.9-1.1); Prothrombin Time 14.7 Seconds (9.0-12.0)
[2023-11-23 07:53] LABS: Folate (Folic Acid),Ser orPlas 17.73 ng/ml (>5.38)
[2023-11-23 07:54] LABS: Vitamin B12 > 1500 pg/ml (180-914)
[2023-11-23 07:59] LABS: Alanine Aminotransferase 51 U/L (7-52); Albumin Level 2.9 gm/dl (3.4-5.0); Alkaline Phosphatase 333 U/L (34-104); Anion Gap 10 (3-11); Aspartate Aminotransferase 59 U/L (13-39); Blood Urea Nitrogen 45 mg/dl (6-23); Calcium 9.1 mg/dl (8.6-10.3); Carbon Dioxide 21 mmol/L (21-32); Chloride 110 mmol/L (98-107); Creatinine Clr Calc Pharmacy 51.9 ml/min; Est GFR (African American) 51.8 ml/min; Est GFR (Non-African American) 44.7 ml/min; Globulin 2.9 gm/dl (2.5-4.0); Glucose 111 mg/dl (70-99(Fasting)); Iron < 10 mcg/dl (35-175); Magnesium 1.9 mg/dl (1.7-2.4); Phosphorus 3.6 mg/dl (2.5-4.9); Potassium 3.7 mmol/L (3.5-5.1); Sodium 141 mmol/L (136-145); Total Protein 5.8 gm/dl (6.0-8.3); Unsaturated Iron Binding Cap 108 mcg/dl (155-355)
[2023-11-23] MEDS: MULTIVITAMIN TAB PO SCH (08:55)
--- NOTE | 2023-11-23 16:46 | XCELERA ---
[id number] \\[id number]
--- NOTE | 2023-11-23 18:50 | Oncology Consultation ---
Date of Consultation November 23, 2023 Assessment & Plan (1) Squamous cell lung cancer: had a lengthy discussion with the patient and his family members. At this point there is no indication for palliative systemic chemotherapy while he is dealing with acute illness. Will discuss with his primary oncologist Dr. No Valadez the patient has been admitted with sepsis. No active intervention per medical oncology at this point till he recovers. Will leave all of the other medical issues in the hands of our hospital internal medicine colleagues. Plan Medical oncology will continue to follow the patient make appropriate recommendations. Thank you for this interesting oncological consult. History of Present Illness Reason for Consultation: Metastatic lung cancer Attending Physician: Jitendra Ross History of Present Illness the patient is a very pleasant 68-year-old gentleman who follows with my colleague Dr. No Ramírez MD Was recently identified to have metastatic squamous cell lung cancer, presented to the ER with generalized weakness and fatigue which have been significant over the last 2 days. Was noted to have elevated white count. He was started on empiric antibiotics. He was due to start palliative systemic chemotherapy plus immunotherapy. He was also hypotensive. He has not been able to eat and drink well. Medical oncology has been consulted to assist in management of this patient with metastatic non-small cell lung cancer while he is admitted in the hospital. Allergies Allergy/AdvReac Type Severity Reaction Status Date / Time No Known Drug Allergies Allergy Unknown Unknown Verified 11/22/23 15:24 Home Medications Medication Instructions Recorded Confirmed Type aspirin 81 mg tablet,delayed 81 mg PO QAM 12/22/17 11/22/23 History release (Alexander Low Dose Aspirin) multivitamin 1 tab PO QAM 12/22/17 11/22/23 History omega 8-ezq-xcr-fish oil 1,000 mg 1 cap PO QAM 12/22/17 11/22/23 History (120 mg-180 mg) capsule (Fish Oil) rosuvastatin 10 mg tablet 10 mg PO QAM #90 tabs 06/26/23 11/22/23 Rx empagliflozin 10 mg tablet 10 mg PO QAM 09/16/23 11/22/23 History (Jardiance) ibuprofen 400 mg tablet 400 mg PO Q6H PRN Pain 09/24/23 11/22/23 History oxybutynin chloride 5 mg tablet 5 mg PO Q8H PRN bladder spasms 10/14/23 11/22/23 History dexamethasone 4 mg tablet See Rx Instructions .Route .COMPLEX 11/22/23 11/22/23 History magnesium oxide 250 mg PO DAILY 11/22/23 11/22/23 History olanzapine 2.5 mg tablet 2.5 mg PO UD 11/22/23 11/22/23 History ondansetron 8 mg disintegrating 8 mg translingual Q8 PRN Nausea 11/22/23 11/22/23 History tablet And Vomiting oxycodone 5 mg tablet 5 mg PO .EVERY 4-6 HOURS PRN Pain 11/22/23 11/22/23 History potassium 99 mg tablet 99 mg PO DAILY 11/22/23 11/22/23 History prochlorperazine maleate 10 mg 10 mg PO Q6 PRN Nausea 11/22/23 11/22/23 History tablet Patient History Medical History Obesity Prediabetes Hx of bladder cancer dx 2022, sx only Chronic kidney disease, stage 3a follows w/ Dr. Ma History of anemia Combined pulmonary fibrosis and emphysema (CPFE) f/u dr. pope, co pulm Lung nodule Hyperlipidemia Hypertension Surgical History History of lung biopsy History of transurethral resection of bladder tumor (TURBT) History of esophagogastroduodenoscopy (EGD) History of colonoscopy History of cornea transplant bilat Family History Father Myocardial infarction Family history of coronary artery disease Mother Non-Hodgkin's lymphoma Other No family history of adverse response to anesthesia Prostate cancer Denies family history of Ovarian cancer Breast cancer Colorectal cancer Social History Smoking Status: Former smoker Tobacco Type: Cigarettes Age Started Using Tobacco: 18; Age Quit Using Tobacco: 38; packs per day: 1; Second Hand Exposure: Yes (hx growing up); Do You Dip or Chew Tobacco: No (quit 20 years ago; advised); Hx Alcohol Use: Yes Alcohol type: beer, wine and hard liquor Hx Substance Use: No Preferred Language: Ukrainian Communication Ability: Effective Visual Impairment: No Limitations Hearing Ability: Normal [facility] Assisted Living Required: No Beliefs That Will Affect Care: None marital status: Current Living Situation: Spouse current occupational status: employed current occupation: Part-time employed-[employer] Other Information That Helps Us Care for You: No Feels Safe at Home: Yes Safety Concerns: Feels Safe At This Time Childhood Exposure to Second-Hand Smoke: Yes Dental Care, Regularly: No Physical Activity Frequency: Does not Exercise Seatbelt Use: always Sunscreen Use: No Assistive Devices: None Review of Systems Review of Systems: All systems reviewed & are unremarkable except as noted in HPI & below Generalized weakness, fatigue, poor oral intake Constitutional: as per Subjective / HPI Eyes: as per Subjective / HPI Ear, Nose, Mouth, Throat: as per Subjective / HPI Respiratory: as per Subjective / HPI Cardiovascular: as per Subjective / HPI Gastrointestinal: as per Subjective / HPI Genitourinary: + as per Subjective / HPI Musculoskeletal: as per Subjective / HPI Integumentary: as per Subjective / HPI Neurologic: as per Subjective / HPI Psychiatric: as per Subjective / HPI Endocrine: as per Subjective / HPI Hematologic / Lymphatic: as per Subjective / HPI Allergy / Immunological: as per Subjective / HPI Physical Exam Constitutional: WD/WN, vitals as above Eyes: PERRL, conjunctivae normal, anicteric sclerae ENMT: external ear and nose normal, oropharynx normal Neck: trachea midline, no thyromegaly Respiratory: normal respiratory effort, lungs clear to auscultation Cardiovascular: RRR, no murmur, no edema Gastrointestinal (Abdomen): normal bowel sounds, soft, nontender, no hepatosplenomegaly Musculoskeletal: no cyanosis or clubbing, extremities motor strength 5/5 Skin: no rashes, warm and dry Neurologic: patellar DTR's 2+ bilat, sensation intact Psychiatric: A+Ox3, euthymic affect Genitourinary: no testicular masses, no penis abnormality Lymphatic: no cervical or axillary lymphadenopathy Results & Data Vital Signs (Past 12 Hours) Vital Signs Temp Pulse Pulse Resp BP Pulse Ox O2 Del Method 11/23/23 16:23 36.7 C 95 H 128/69 93 Nasal Cannula 11/23/23 14:00 78 11/23/23 11:47 36.3 C L 71 20 102/58 L 95 Nasal Cannula 11/23/23 07:44 36.6 C 91 H 20 114/68 93 Nasal Cannula 11/23/23 07:00 95 H O2 Flow Rate 11/23/23 16:23 4 11/23/23 14:00 11/23/23 11:47 3 11/23/23 07:44 3 11/23/23 07:00
--- NOTE | 2023-11-23 21:48 | Hospitalist Progress Note ---
Date of Service November 23, 2023 Assessment & Plan (1) SIRS (systemic inflammatory response syndrome): Plan: Suspect his WBC and procalcitonin due to extensive metastatic cancer although cannot rule out bacteremia at this time. No definitive source of infection to diagnose sepsis - consider CT C/A/P with IV contrast once renal function improved if bacteremic Empiric cefepime given int he ER with continue IV Zosyn Due to squamous cell lung cancer Plan is to transition patient to home hospice. Case managerment is working on this (2) Acute respiratory failure with hypoxia: Plan: Suspect due to underlying cancer with pulmonary fibrosis and emphysema - likely to need oxygen lifelong Consider CT for PE if significant worsening (3) Hypotension: Plan: TTE to assess for pericardial effusion Cortisol normal No longer on anti-hypertensives Surprisingly lactate normal with BP as low as 72/45 on arrival to ER although he was symptomatically lightheaded at that time Total 3L bolus IV fluids Patient would be amenable to vasopressors overnight if recommended (4) BAMBI (acute kidney injury): Plan: Cr 2.33 from 1.46 Very dry on exam with mild third spacing (suspect nutritional) Expect to resolve with IV fluids resuscitation (5) Elevated INR: Plan: Suspect more nutritional than hepatic dysfunction given normal platelets Vitamin K 10mg IV and repeat INR with AM labs (6) Normocytic anemia: Plan: Suspect from metastatic bone involvement Ferritin, iron studies, retic count, B12, folate, LDH with AM labs (7) Squamous cell lung cancer: Plan: With extensive metastatic disease. Planned on starting chemotherapy on Friday but given his overall nutritional state and already inability to not keep up with oral/nutritional intake will consult oncology and palliative care to discuss this further. (8) Generalized weakness: Plan: Suspected secondary to metastatic cancer +/- infection (9) Combined pulmonary fibrosis and emphysema (CPFE): (10) CIS (carcinoma in situ of bladder): Plan VTE Prophylaxis - heparin 5000 units q8h Diet - regular Disposition - admit to PCU Admission and Anticipated Discharge Date Admission Date: November 22, 2023 Subjective Patient reports no new symptoms. Review of Systems Review of Systems: All systems reviewed & are unremarkable except as noted in HPI & below Physical Exam Physical Exam: Constitutional: well developed and well nourished; no acute distress Respiratory: \ no labored breathing and expiratory phase not prolonged Cardiovascular: Rate/Rhythm: regular rhythm and rate Gastrointestinal (Abdomen): normal bowel sounds, soft, nontender, no hepatosplenomegaly Musculoskeletal: no cyanosis or clubbing, extremities motor strength 5/5 Skin: no rashes, warm and dry (No areas of cellulitis noted) Neurologic: moves all extremities and awake; not confused Psychiatric: A+Ox3, euthymic affect Genitourinary: no CVA tenderness Results & Data Results & Data Vital Signs (Past 12 Hours) Vital Signs Temp Pulse Pulse Resp BP BP Pulse Ox 11/23/23 20:06 37.2 C 87 17 121/62 94 11/23/23 16:23 36.7 C 95 H 128/69 93 11/23/23 14:00 78 11/23/23 11:47 36.3 C L 71 20 102/58 L 95 O2 Del Method O2 Flow Rate 11/23/23 20:06 Nasal Cannula 3.5 11/23/23 16:23 Nasal Cannula 4 11/23/23 14:00 11/23/23 11:47 Nasal Cannula 3 PG Care Time/CCT Total # of Minutes Spent Total Time Spent with Patient: Total time spent is greater than 50% in coordination of care (as documented) at patient's floor/unit and/or counseling patient: Coding Level of Care Code 81040 SUB INP/OBS CARE 2/35MIN Diagnoses SIRS (systemic inflammatory response syndrome) R65.10 Acute respiratory failure with hypoxia J96.01 Hypotension I95.9 BAMBI (acute kidney injury) N17.9 Elevated INR R79.1 Normocytic anemia D64.9 Squamous cell lung cancer C34.90 Generalized weakness R53.1 Combined pulmonary fibrosis and emphysema (CPFE) J43.9; J84.10 CIS (carcinoma in situ of bladder) D09.0
--- NOTE | 2023-11-23 22:28 | Electrocardiogram Report ---
Test Reason : Blood Pressure : */* mmHG Vent. Rate : 95 BPM Atrial Rate : 95 BPM P-R Int : 150 ms QRS Dur : 80 ms QT Int : 340 ms P-R-T Axes : 56 22 67 degrees QTcB Int : 427 ms Normal sinus rhythm Normal ECG When compared with ECG of 25-Feb-2023 09:35, Vent. rate has increased by 40 bpm Confirmed by Johnny Hobson ([id number]) on 11/23/2023 10:27:38 PM Referred By: REFERRED SELF Confirmed By: Johnny Hobson
[2023-11-24 06:40] LABS: Hematocrit (blood only) 23.2 % (42.0-52.0); Hemoglobin 7.4 g/dl (14.0-18.0); Mean Corpuscular Hemoglobin 26.8 pg (25.0-34.0); Mean Corpuscular Hgb Conc 31.9 g/dL (32.0-36.0); Mean Corpuscular Volume 84.1 fL (80.0-100.0); Platelet Count 185 K/uL (130-400); RDW Coefficient of Variation 16.2 % (11.5-14.5); RDW Standard Deviation 49.2 fL (36.4-46.3); Red Blood Count 2.76 M/uL (4.70-6.10); White Blood Count 21.31 K/ul (4.8-10.8)
[2023-11-24 06:54] LABS: Calcium 9.4 mg/dl (8.6-10.3); Creatinine Clr Calc Pharmacy 53.5 ml/min; Est GFR (African American) 53.9 ml/min; Est GFR (Non-African American) 46.5 ml/min; Potassium 3.6 mmol/L (3.5-5.1)
[2023-11-24 07:24] VITALS: O2SAT 96
--- NOTE | 2023-11-24 08:32 | Hospitalist Progress Note ---
Date of Service November 24, 2023 Assessment & Plan (1) SIRS (systemic inflammatory response syndrome): Plan: Suspect his WBC and procalcitonin due to extensive metastatic squamous cell lung cancer some necrotic areas on chest imaging one blood culture negative to date Empiric cefepime given int he ER with continue IV Zosyn Secondary malignant neoplasms of liver, mediastinal lymph nodes, and left eighth posterior rib Due to squamous cell lung cancer Plan is to transition patient to home hospice. Case management is working on this has associated chronic inflammatory anemia (2) Acute respiratory failure with hypoxia: Plan: Suspect due to underlying cancer with pulmonary fibrosis and emphysema - likely to need oxygen at discharge CTA negative for PE, necrotic lung mass and extensive soft tissue masses has history of combined pulmonary fibrosis and emphysema (3) Hypotension: Plan: TTE with preserved EF no effusion pulmonary hypertension Cortisol normal No longer on anti-hypertensives (4) BAMBI (acute kidney injury): Plan: resolved, baseline CKD3 (5) Elevated INR: Plan: Suspect structural liver disease with metastasis and nutritional Vitamin K 10mg IV and repeat INR with AM labs Plan VTE Prophylaxis - heparin 5000 units q8h Diet - regular h/o carcinoma in situ bladder Admission and Anticipated Discharge Date Admission Date: November 22, 2023 Results & Data Results & Data Vital Signs (Past 12 Hours) Vital Signs Temp Pulse Pulse Resp BP Pulse Ox O2 Del Method 11/24/23 07:39 78 11/24/23 07:23 97.7 F 72 18 97/56 L 96 Nasal Cannula 11/24/23 04:22 98.2 F 86 18 113/63 95 Nasal Cannula 11/23/23 23:49 100.0 F H 79 20 109/60 94 Nasal Cannula 11/23/23 23:02 79 O2 Flow Rate 11/24/23 07:39 11/24/23 07:23 4 11/24/23 04:22 3.5 11/23/23 23:49 3.5 11/23/23 23:02 PG Care Time/CCT Total # of Minutes Spent Total Time Spent with Patient: Total time spent is greater than 50% in coordination of care (as documented) at patient's floor/unit and/or counseling patient: Coding Diagnoses SIRS (systemic inflammatory response syndrome) R65.10 Acute respiratory failure with hypoxia J96.01 Hypotension I95.9 BAMBI (acute kidney injury) N17.9 Elevated INR R79.1
[2023-11-24 15:51] VITALS: BP 104/63; PULSE 84; RESP 17; TEMP 97.9
--- NOTE | 2023-11-24 17:03 | Discharge Summary ---
Discharge Summary Date of Service November 24, 2023 Principal Dx & Hospital Course #1 = Principal Diagnosis (1) SIRS (systemic inflammatory response syndrome): Suspect his WBC and procalcitonin due to extensive metastatic squamous cell lung cancer some necrotic areas on chest imaging one blood culture negative to date Empiric cefepime given int he ER with continue IV Zosyn transition home on hospice care will not include any persistent antibiotics at this time Secondary malignant neoplasms of liver, mediastinal lymph nodes, and left eighth posterior rib Due to squamous cell lung cancer Plan is to transition patient to home hospice. Case management has arranged care with [facility] hospice has associated chronic inflammatory anemia (2) Acute respiratory failure with hypoxia: Suspect due to underlying cancer with pulmonary fibrosis and emphysema - likely to need oxygen at discharge CTA negative for PE, necrotic lung mass and extensive soft tissue masses has history of combined pulmonary fibrosis and emphysema (3) Hypotension: TTE with preserved EF no effusion pulmonary hypertension Cortisol normal No longer on anti-hypertensives (4) BAMBI (acute kidney injury): resolved, baseline CKD3 (5) Elevated INR: Suspect structural liver disease with metastasis and nutritional Vitamin K 10mg IV x 1 Plan Transition to home hospice care oncology notified h/o carcinoma in situ bladder Admission HPI Per Admitting Provider Neto Garcia is a 68-year-old male with metastatic squamous cell lung cancer who presents to the ER with generalized weakness. He reports ongoing generalized weakness getting progressively worse but significant over the last 2 days with him not being able to get around his house. No one-sided weakness, change in speech/hearing/vision. This weakness is associated with progressive shortness of breath especially on exertion and decreased appetite. He denies any fever, chills, nasal congestion, sinus pain, productive cough. No abdominal pain, nausea, vomiting, diarrhea. No urinary symptoms. He reports intermittent pains in his bilateral flanks, back, down his left side, and right shoulder which come and go. He reports chemotherapy is planned to start on Friday. Discharge Exam Patient seen resting comfortably anticipating going home on 11/24/2023 Discharge Plan Discharge Items Patient Disposition: Hospice - Home Reason For Visit: SIRS, BAMBI Discharge Diagnosis: metastatic squamous cell cancer of lung Activity: Per Instructions section Activity Comment: per home hospice Non-emergency contact: Specialist Call non-emergency contact if: your pain is not controlled Follow-up/Referrals: Man Garvin MD [Primary Care Provider] - Diet: Regular Addtl Attending Provider Instructions: goal for home is pain control, if you are not having good symptom control please return to the hospital Pending Studies at Discharge: No Stand-Alone Forms: My [facility] Medications and DC Order Prescriptions: Continued oxybutynin chloride 5 mg tablet 5 mg PO Q8H PRN (Reason: bladder spasms) prochlorperazine maleate 10 mg tablet 10 mg PO Q6 PRN (Reason: Nausea) olanzapine 2.5 mg tablet 2.5 mg PO UD Rx Instructions: take 1 tablet orally every day at bedtime for 4 days starting day 1 of chemotherapy ondansetron 8 mg tablet,disintegrating 8 mg translingual Q8 PRN (Reason: Nausea And Vomiting) oxycodone 5 mg tablet 5 mg PO .EVERY 4-6 HOURS PRN (Reason: Pain) Discontinued rosuvastatin 10 mg tablet 10 mg PO QAM Qty: 90 3RF multivitamin Tablet 1 tab PO QAM aspirin [Alexander Low Dose Aspirin] 81 mg Tablet,Delayed Release (Dr/Ec) 81 mg PO QAM omega 6-vow-jqe-fish oil [Fish Oil] 1,000 mg (120 mg-180 mg) Capsule 1 cap PO QAM Jardiance 10 mg tablet 10 mg PO QAM ibuprofen 400 mg Tablet 400 mg PO Q6H PRN (Reason: Pain) dexamethasone 4 mg tablet See Rx Instructions .ROUTE .COMPLEX Rx Instructions: take 5 tablets (20 mg) 12 and 6 hours prior to PACLITAXEL Potassium-99 99 mg Tablet 99 mg PO DAILY magnesium oxide 250 mg magnesium Tablet 250 mg PO DAILY Discharge Orders: Discharge Order (Routine); Ordered 11/24/23 Ordered By: Mario Hurtado Admission Data Admit Date/Time: 11/22/23 15:52 Attending Provider: Mario Hurtado Admit Provider: Rodriguez Huynh Primary Care Provider: Man Garvin Other Providers: Luis Antonio Mi; Denisa Valles; [facility]; [facility] Other Interventions: Discharge Summary Assessment (RN) Last Done: 11/24/23 15:35 Hospital Stay Data Consultations 11/22/23 17:48 Consult Oncology Routine Consult Palliative Care Routine Diagnostic Imagining Performed 11/22/23 23:20 CT abd pelvis IV con only Stat CT for pulmonary embolism PE [CT angio chest PE protocol] Stat Pending Results Patient Have Any Pending Studies at Discharge: No Discharge Instructions Given to Patient (Per Discharging Provider) goal for home is pain control, if you are not having good symptom control please return to the hospital Total Time Total Time Spent Total Time Spent (In Minutes): It required greater than 30 minutes to prepare this patient for discharge. Coding Level of Care Code 97143 INP/OBS DISCH >30 MIN Diagnoses SIRS (systemic inflammatory response syndrome) R65.10 Acute respiratory failure with hypoxia J96.01 Hypotension I95.9 BAMBI (acute kidney injury) N17.9 Elevated INR R79.1
== END 2023-11-24 16:30 | disposition hospice, home (50) | DRG 180 ==
LOC: ED 12:52 → 2S 15:52 → SUATTDRO 15:52 → 2S 17:45